=== PATIENT | female | born 1955 | race Caucasian/White ===

== ENCOUNTER → 2019-08-18 | Outpatient (CLI) | payer MEDICARE, OTHER ==
[~2019-08-18] MED LIST: ATOR10 PO; CYAN1000 PO; Calcium-Magnes1 EAC5 PO; DIPH50 PO; ERGO400 PO; FISH1000 PO; Ginger250 MG PO; HYDCHL25 PO; [UNRECOGNIZED DRUG - OTHER] PO
[2019-08-18 17:50] LABS: BASOPHILS ABSOLUTE AUTO 0.07 K/mm3 (0.00-0.23); BASOPHILS PERCENT AUTO 1 % (0-2); EOSINOPHILS PERCENT AUTO 6 % (0-6); Hemoglobin 13.8 g/dL (11.5-16.0); IMMATURE GRAN ABSOLUTE AUTO 0.01 K/mm3 (0.00-0.10); IMMATURE GRAN PERCENT AUTO 0 % (0-1); LYMPHOCYTES ABSOLUTE AUTO 1.43 K/mm3 (0.84-5.20); LYMPHOCYTES PERCENT AUTO 26 % (21-46); MONOCYTES ABSOLUTE AUTO 0.39 K/mm3 (0.16-1.47); MONOCYTES PERCENT AUTO 7 % (4-13); Mean Corpuscular HGB 29.4 pg (26.0-34.0); Mean Corpuscular HGB Conc 32.1 g/dL (31.5-36.5); Mean Corpuscular Volume 92 fL (80-100); Mean Platelet Volume 10.2 fL (9.1-12.4); NEUTROPHILS ABSOLUTE AUTO 3.22 K/mm3 (1.96-9.15); NEUTROPHILS PERCENT AUTO 59 % (41-73); Platelet Count 450 K/mm3 (150-400); RDW Coefficient Variation 15.9 % (11.7-14.2); RDW Standard Deviation 53.7 fL (35.1-46.3); Red Blood Cell Count 4.69 M/mm3 (3.80-5.20); White Blood Cell Count 5.42 K/mm3 (4.00-11.30)
[2019-08-18 18:15] LABS: Alanine Aminotransfer (ALT/SGP 41 U/L (12-78); Albumin, Blood 3.5 g/dL (3.4-5.0); Albumin/Globulin Ratio 0.8 (0.8-1.8); Alk Phos 75 U/L (50-136); Anion Gap 7 mmol/L (6-16); Aspartate Aminotrans (AST/SGOT 29 U/L (12-37); Bilirubin, Total 0.4 mg/dL (0.1-1.0); Blood Urea Nitrogen 20 mg/dL (8-24); Bun/Creatinine Ratio 24.8 (12.0-20.0); CHOL/HDL RATIO 1.9; CO2, Blood 30 mmol/L (21-32); Calcium, Blood 9.1 mg/dL (8.5-10.1); Chloride, Blood 102 mmol/L (98-108); Cholesterol 173 mg/dL (50-200); Creatinine, Blood 0.81 mg/dL (0.40-1.00); Globulin, Blood 4.3 g/dL (2.2-4.0); Glomerular Filtration Rate >60 (60-); Glucose, Blood 97 mg/dL (70-99); HDL Cholesterol 91 mg/dL (>39); LDL/HDL RATIO 0.7; Low Density Lipoprotein Chol 64 mg/dL (0-110); Potassium, Blood 3.3 mmol/L (3.5-5.5); Sodium, Blood 139 mmol/L (136-145); Total Protein, Blood 7.8 g/dL (6.4-8.2); Triglycerides 88 mg/dL (30-160); Very Low Density Lipoprot Chol 17 mg/dL (6-32)
[2019-08-20 05:09] LABS: HBSAG SCREEN Negative (Negative); HEP B CORE AB, TOT Negative (Negative); HEP C VIRUS AB 0.1 (0.0-0.9)
== END ==
LOC: LAB 16:53 → LAB SHORT 16:53
PROVIDERS: Family Medicine
DX: Z11.59 Encounter for screening for other viral diseases (principal); I10 Essential (primary) hypertension; R74.8 Abnormal levels of other serum enzymes
CPT/HCPCS: 80053; 80061; 84443; 85025; 86704; 86708; 86803; 87340

== ENCOUNTER 2021-09-10 20:23 | Emergency (ER) | payer MEDICARE ==
[~2021-09-10] VITALS: Ht 157.5 cm; Wt 99.8 kg
== END 2021-09-10 23:52 | disposition home or self-care (01) ==
LOC: ER 20:23
DX: U07.1 COVID-19 (principal); I10 Essential (primary) hypertension; Z88.8 Allergy status to other drugs, medicaments and biological substances
CPT/HCPCS: 71045; 99283-25

== ENCOUNTER → 2024-08-24 | Outpatient (CLI) | payer OTHER ==
[2024-08-26 22:42] LABS: ALBUMIN 3.95 g/dL (3.75-5.01); ALPHA 1 GLOBULIN 0.32 g/dL (0.19-0.46); ALPHA 2 GLOBULIN 0.92 g/dL (0.48-1.05); BETA GLOBULIN 1.04 g/dL (0.48-1.10); GAMMA 1.17 g/dL (0.62-1.51); IMMUNOFIXATION REFLEX Not Done; TOTAL PROTEIN,SERUM 7.4 g/dL (6.3-8.2)
== END ==
LOC: LAB SHORT 12:12 → LAB 12:12
PROVIDERS: Family Medicine
DX: R77.1 Abnormality of globulin (principal)
CPT/HCPCS: 82784; 83521; 84155; 84165; 86334

== ENCOUNTER → 2025-01-26 | Outpatient (CLI) | payer OTHER | LOC: LAB 09:00 → LAB SHORT 09:00 | DX: N39.46 Mixed incontinence (principal) | CPT/HCPCS: 87077; 87086; 87186 ==

== ENCOUNTER → 2025-02-18 | Outpatient (CLI) | payer OTHER ==
[2025-02-18 15:50] LABS: Bacterial Vaginosis PCR Negative (NEGATIVE); Candida Group, PCR NOT DETECTED (NOT DETECT); Candida glabrata-krusei, PCR NOT DETECTED (NOT DETECT)
== END ==
LOC: LAB 09:46 → LAB SHORT 09:46
PROVIDERS: Physician Assistant
DX: N89.8 Other specified noninflammatory disorders of vagina (principal)
CPT/HCPCS: 81515

== ENCOUNTER 2025-07-20 17:55 | Inpatient (IN) | payer OTHER ==
[~2025-07-20] VITALS: Ht 160 cm; Wt 99.6 kg
[~2025-07-20 17:55] MED LIST changes: +B-12500 MC2 PO; -CYAN1000 PO; +FISH OIL 1,0001 EA10 PO; -FISH1000 PO
[2025-07-20 18:54] LABS: BASOPHILS ABSOLUTE AUTO 0.07 K/mm3 (0.00-0.23); BASOPHILS PERCENT AUTO 1 % (0-2); EOSINOPHILS ABSOLUTE AUTO 0.09 K/mm3 (0.00-0.68); EOSINOPHILS PERCENT AUTO 1 % (0-6); Hematocrit 44.9 % (33.0-51.0); Hemoglobin 15.1 g/dL (11.5-16.0); IMMATURE GRAN ABSOLUTE AUTO 0.03 K/mm3 (0.00-0.10); IMMATURE GRAN PERCENT AUTO 0 % (0-1); LYMPHOCYTES ABSOLUTE AUTO 1.14 K/mm3 (0.84-5.20); LYMPHOCYTES PERCENT AUTO 11 % (21-46); MONOCYTES ABSOLUTE AUTO 0.41 K/mm3 (0.16-1.47); MONOCYTES PERCENT AUTO 4 % (4-13); Mean Corpuscular HGB Conc 33.6 g/dL (31.5-36.5); Mean Corpuscular Volume 92 fL (80-100); NEUTROPHILS ABSOLUTE AUTO 8.32 K/mm3 (1.96-9.15); NEUTROPHILS PERCENT AUTO 83 % (41-73); NRBC ABSOLUTE 0.00 K/mm3 (0.00-0.02); NRBC Auto 0.0 /100 WBC (0.0-0.2); Platelet Count 403 K/mm3 (150-400); RDW Coefficient Variation 13.6 % (11.7-14.2); RDW Standard Deviation 46.3 fL (35.1-46.3)
[2025-07-20 19:12] LABS: Alanine Aminotransfer (ALT/SGP 44.0 U/L (12-78); Albumin, Blood 3.7 g/dL (3.4-5.0); Albumin/Globulin Ratio 0.8 (0.8-1.8); Anion Gap 9.0 mmol/L (3-11); Aspartate Aminotrans (AST/SGOT 30.0 U/L (12-37); Bilirubin, Total 0.5 mg/dL (0.1-1.0); Blood Urea Nitrogen 16.0 mg/dL (8-24); CO2, Blood 30.0 mmol/L (21-32); Calcium, Blood 9.9 mg/dL (8.5-10.1); Chloride, Blood 100.0 mmol/L (98-108); Creatinine, Blood 0.79 mg/dL (0.40-1.00); Globulin, Blood 4.5 g/dL (2.2-4.0); Glucose, Blood 138.0 mg/dL (70-99); Potassium, Blood 3.3 mmol/L (3.5-5.5); Sodium, Blood 136.0 mmol/L (136-145); Total Protein, Blood 8.2 g/dL (6.4-8.2)
[2025-07-20] MEDS ORDERED: HYDCHL25 PO (20:55)
[2025-07-20] MEDS ORDERED: Amitriptyline H10 MG PO (20:55)
[2025-07-20] MEDS ORDERED: Ondansetron HCl 2 MG / ML 2ML Vial IV PRN (22:30)
[2025-07-20] MEDS ORDERED: FLU VACC TS2025-26(6MOS UP)/PF 45 MCG/0.5 ML SYRINGE IM SCH (22:30)
[2025-07-20] MEDS ORDERED: HydrALAZINE HCl 20 MG / ML 1ML Vial IV PRN (22:35)
[2025-07-20] MEDS ORDERED: Naloxone HCl 0.4MG / ML 1ML Vial IV PRN (22:50)
[2025-07-20] MEDS ORDERED: NS KCL 40 mEq 1,000 ML IV ONE (23:00)
[2025-07-20] MEDS ORDERED: Morphine Sulfate 4 MG/1 ML Injection IV PRN (23:00)
[2025-07-20] MEDS ORDERED: Morphine Sulfate 4 MG/1 ML Injection IV ONE (23:00)
[2025-07-20 23:34] VITALS: BP 155/97
[2025-07-21 02:54] VITALS: BP 183/113
[2025-07-21 04:32] LABS: BASOPHILS ABSOLUTE AUTO 0.05 K/mm3 (0.00-0.23); BASOPHILS PERCENT AUTO 0 % (0-2); EOSINOPHILS ABSOLUTE AUTO 0.04 K/mm3 (0.00-0.68); EOSINOPHILS PERCENT AUTO 0 % (0-6); Hematocrit 42.3 % (33.0-51.0); Hemoglobin 14.2 g/dL (11.5-16.0); IMMATURE GRAN ABSOLUTE AUTO 0.03 K/mm3 (0.00-0.10); IMMATURE GRAN PERCENT AUTO 0 % (0-1); LYMPHOCYTES ABSOLUTE AUTO 2.04 K/mm3 (0.84-5.20); LYMPHOCYTES PERCENT AUTO 18 % (21-46); MONOCYTES ABSOLUTE AUTO 0.62 K/mm3 (0.16-1.47); MONOCYTES PERCENT AUTO 5 % (4-13); Mean Corpuscular HGB Conc 33.6 g/dL (31.5-36.5); Mean Corpuscular Volume 92 fL (80-100); NEUTROPHILS ABSOLUTE AUTO 8.63 K/mm3 (1.96-9.15); NEUTROPHILS PERCENT AUTO 76 % (41-73); NRBC ABSOLUTE 0.00 K/mm3 (0.00-0.02); NRBC Auto 0.0 /100 WBC (0.0-0.2); Platelet Count 409 K/mm3 (150-400); RDW Coefficient Variation 13.6 % (11.7-14.2); RDW Standard Deviation 46.4 fL (35.1-46.3)
[2025-07-21 04:40] LABS: Prothrombin Time Results 11.4 Sec (9.7-11.5)
--- NOTE | 2025-07-21 04:58 | NUR ---
NOC SUMMARY- PT ARRIVED TO ROOM IN NO DISTRESS. PT AMBULATORY AND VOIDING. PT HAS BEEN RESTING COMFORTABLY. PT REMAINS NPO. CALL LIGHT IN REACH.
[2025-07-21 05:05] LABS: Alanine Aminotransfer (ALT/SGP 37.0 U/L (12-78); Albumin, Blood 3.4 g/dL (3.4-5.0); Albumin/Globulin Ratio 0.8 (0.8-1.8); Anion Gap 9.0 mmol/L (3-11); Aspartate Aminotrans (AST/SGOT 28.0 U/L (12-37); Bilirubin, Total 0.5 mg/dL (0.1-1.0); Blood Urea Nitrogen 14.0 mg/dL (8-24); CO2, Blood 27.0 mmol/L (21-32); Calcium, Blood 9.3 mg/dL (8.5-10.1); Chloride, Blood 104.0 mmol/L (98-108); Creatinine, Blood 0.6 mg/dL (0.40-1.00); Globulin, Blood 4.0 g/dL (2.2-4.0); Glucose, Blood 131.0 mg/dL (70-99); Magnesium, Blood 2.5 mg/dL (1.6-2.4); Potassium, Blood 3.5 mmol/L (3.5-5.5); Sodium, Blood 136.0 mmol/L (136-145); Total Protein, Blood 7.4 g/dL (6.4-8.2)
[2025-07-21 07:19] VITALS: BP 149/83
[2025-07-21] MEDS ORDERED: Enoxaparin 40 MG/0.4 ML SYR SC SCH (09:00)
[2025-07-21 14:51] VITALS: BP 140/90
--- NOTE | 2025-07-21 16:57 | NUR ---
SUMMARY NO ACUTE CHANGES T/O SHIFT. PT REC'D FLEET ENEMA PER ORDERS AND HAD SMALL HARD BM. AMBULATED IN [place] W/OIL SCOUT. MEDICATED ONCE DURING SHIFT FOR PAIN. REMAINS NPO. IV FLUIDS INFUSING PER ORDERS. SLEEPING AT THIS TIME. CALL LIGHT IN REACH.
[2025-07-21 19:41] VITALS: BP 153/94
[2025-07-22] VITALS (9 sets, daily range): BP systolic 146–181; BP diastolic 83–99
[2025-07-22 04:39] LABS: BASOPHILS ABSOLUTE AUTO 0.05 K/mm3 (0.00-0.23); BASOPHILS PERCENT AUTO 1 % (0-2); EOSINOPHILS ABSOLUTE AUTO 0.31 K/mm3 (0.00-0.68); EOSINOPHILS PERCENT AUTO 4 % (0-6); Hematocrit 39.7 % (33.0-51.0); Hemoglobin 13.1 g/dL (11.5-16.0); IMMATURE GRAN ABSOLUTE AUTO 0.02 K/mm3 (0.00-0.10); IMMATURE GRAN PERCENT AUTO 0 % (0-1); LYMPHOCYTES ABSOLUTE AUTO 1.48 K/mm3 (0.84-5.20); LYMPHOCYTES PERCENT AUTO 19 % (21-46); MONOCYTES ABSOLUTE AUTO 0.68 K/mm3 (0.16-1.47); MONOCYTES PERCENT AUTO 9 % (4-13); Mean Corpuscular HGB Conc 33.0 g/dL (31.5-36.5); Mean Corpuscular Volume 95 fL (80-100); NEUTROPHILS ABSOLUTE AUTO 5.24 K/mm3 (1.96-9.15); NEUTROPHILS PERCENT AUTO 67 % (41-73); NRBC ABSOLUTE 0.00 K/mm3 (0.00-0.02); NRBC Auto 0.0 /100 WBC (0.0-0.2); Platelet Count 319 K/mm3 (150-400); RDW Coefficient Variation 14.0 % (11.7-14.2); RDW Standard Deviation 49.1 fL (35.1-46.3)
--- NOTE | 2025-07-22 05:13 | NUR ---
SHIFT SUMMARY HUA WAS ALERT AND FULLY ORIENTED ON ASSESSMENT. PER REPORT PT HAD BM'S AND PASSED FLATUS ON DAY SHIFT. BT'S PRESENT. PT DENES PAIN, CHEST PAIN, NAUSEA, SOB. PT B/P ELEVATED. NO ACUTE EVENTS OR OTHER NOTED CHANGES TO PT CONDITION.
[2025-07-22 05:25] LABS: Anion Gap 6.0 mmol/L (3-11); Blood Urea Nitrogen 16.0 mg/dL (8-24); CO2, Blood 30.0 mmol/L (21-32); Calcium, Blood 9.0 mg/dL (8.5-10.1); Chloride, Blood 105.0 mmol/L (98-108); Creatinine, Blood 0.67 mg/dL (0.40-1.00); Glucose, Blood 99.0 mg/dL (70-99); Potassium, Blood 3.4 mmol/L (3.5-5.5); Sodium, Blood 138.0 mmol/L (136-145)
--- NOTE | 2025-07-22 08:46 | NUR ---
DISCHARGE PT EDUCATED ON AND RECEIVED PRINTED DISCHARGE INSTRUCTIONS AND VERBALIZED AN UNDERSTANDING. PT REPORTS HAVING ALL NEW RXS FILLED AT HOME. IV DC'D. PT GATHERING ALL PERSONAL BELONGINGS. HERE TO TAKE PT HOME. WILL ESCORT PT OUT VIA W/C TO VEHICLE.
[2025-07-22] MEDS ORDERED: Potassium Chl 20MEQ/Water100ML 100 ML IV STA (10:39)
--- NOTE | 2025-07-22 16:49 | NUR ---
PATIENT HAS BEEN UP TO CHAIR X3 TODAY.WALKED HALLS X2 WITH NO ASSIT.
--- NOTE | 2025-07-22 17:29 | NUR ---
SHIFT NOTE: PT A/OX4 PLEASANT AND COOPERATIVE WITH CARE. SHE HAS BOWEL TONES IN ALL QUADRANTS. SHE DENIES PASSING FLATUS AND NO BM THIS SHIFT. HER ABD IS FIRM AND DISTENDED. SHE REPORTS FEELING FULL AND FEELING THE NEED TO BURP. SHE IS ON A CLEAR LIQUID DIET WITH MINIMAL INTAKE TOLERATED. SHE HAS REMAINED ON RA T/O DAY SHIFT. SHE HAS BEEN AMBULATING THE HALLS INDEPENDENTLY TO PROMOTE GUT MOTILITY. CARE CONTINUES
--- NOTE | 2025-07-22 19:44 | NUR ---
PROVIDER UPDATE DR. OSEGUERA NOTIFIED PT C/O 07/15 ABD "GAS" PAIN, SEVERE BLOATING AND ABD TENDERNESS. NEW ORDER FOR NG PLACEMENT, NPO STATUS AND XRAY POST PLACEMENT OBTAINED. WILL DISCUSS TREATMENT PLACE WITH PATIENT AND IMPLEMENT DIRECTED.
[2025-07-23] VITALS (14 sets, daily range): BP systolic 129–169; BP diastolic 79–98
--- NOTE | 2025-07-23 04:17 | NUR ---
SHIFT SUMMARY HUA WAS ALERT AND FULLY ORIENTED ON ASSESSMENT. PT DENIES SOB, CHEST PAIN, NAUSEA. PT DENIES PAIN, BUT IS VERY UNCOMFORTABLE DT ABD BLOATING. PT IS DISTENDED, ABD VERY FIRM, DENIES PASSING FLATUS, UNABLE TO BELCH. DR OSEGUERA CONTACTED, NJT ORDERED. ATTEMPTED TO PLACE, BUT TUBE CURLED AT BOTTOM OF ESOPHAGUS AND DID NOT ENTER STOMACH, PT UNWILLING TO ATTEMPT A SECOND PLACEMENT D/T DISCOMFORT. PT STATES DISCOMFORT IS UNCHANGED ATTHIS TIME. WALKING ENCOURAGED. PT NPO. NO OTHER EVENTS OR CHANGES THIS SHIFT.
[2025-07-23 04:42] LABS: BASOPHILS ABSOLUTE AUTO 0.06 K/mm3 (0.00-0.23); BASOPHILS PERCENT AUTO 1 % (0-2); EOSINOPHILS ABSOLUTE AUTO 0.23 K/mm3 (0.00-0.68); EOSINOPHILS PERCENT AUTO 3 % (0-6); Hematocrit 39.4 % (33.0-51.0); Hemoglobin 13.0 g/dL (11.5-16.0); IMMATURE GRAN ABSOLUTE AUTO 0.02 K/mm3 (0.00-0.10); IMMATURE GRAN PERCENT AUTO 0 % (0-1); LYMPHOCYTES ABSOLUTE AUTO 1.83 K/mm3 (0.84-5.20); LYMPHOCYTES PERCENT AUTO 21 % (21-46); MONOCYTES ABSOLUTE AUTO 0.68 K/mm3 (0.16-1.47); MONOCYTES PERCENT AUTO 8 % (4-13); Mean Corpuscular HGB Conc 33.0 g/dL (31.5-36.5); Mean Corpuscular Volume 93 fL (80-100); NEUTROPHILS ABSOLUTE AUTO 5.85 K/mm3 (1.96-9.15); NEUTROPHILS PERCENT AUTO 68 % (41-73); NRBC ABSOLUTE 0.00 K/mm3 (0.00-0.02); NRBC Auto 0.0 /100 WBC (0.0-0.2); Platelet Count 325 K/mm3 (150-400); RDW Coefficient Variation 13.8 % (11.7-14.2); RDW Standard Deviation 46.7 fL (35.1-46.3)
[2025-07-23 05:11] LABS: Anion Gap 8.0 mmol/L (3-11); Blood Urea Nitrogen 9.0 mg/dL (8-24); CO2, Blood 28.0 mmol/L (21-32); Calcium, Blood 9.3 mg/dL (8.5-10.1); Chloride, Blood 102.0 mmol/L (98-108); Creatinine, Blood 0.61 mg/dL (0.40-1.00); Glucose, Blood 101.0 mg/dL (70-99); Potassium, Blood 3.3 mmol/L (3.5-5.5); Sodium, Blood 135.0 mmol/L (136-145)
--- NOTE | 2025-07-23 10:54 | NUR ---
MD OSEGUERA AT BEDSIDE TO OR TODAY FOR BOWEL RESECTION w/POSSIBLE OSTOMY PLACMENT. NPO SINCE MIDNIGHT. PT DID RECIEVE LOVENOX THIS AM. MD OSEGUERA NOTIFIED, PT TO STILL RECEIVE SURGERY TODAY.
[2025-07-23] MEDS ORDERED: Rocuronium Bromide 10 MG/ML 5ML Injection IV ONE (11:17)
--- NOTE | 2025-07-23 11:57 | NUR ---
PATIENT OFF UNIT FOR PROCEDURE
[2025-07-23] MEDS ORDERED: Ampicillin Sod/Sulbactam Sod 3 GM in NS 100 ML IV SCH (12:00)
[2025-07-23] MEDS ORDERED: FentaNYL Citrate 50 MCG/ML 2 ML Injection ONE (12:10)
[2025-07-23] MEDS ORDERED: Ondansetron HCl 2 MG / ML 2ML Vial ONE (12:15)
[2025-07-23] MEDS ORDERED: Dexamethasone Sod Phos 10 MG/ML 1ML VIAL ONE (12:15)
[2025-07-23] MEDS ORDERED: Sugammadex Sodium 200 MG/2ML SDV (100 MG/ML) ONE (12:24)
[2025-07-23] MEDS ORDERED: Bupivacaine 0.5% HCl 5 MG/ML 30MLVIAL ONE (12:24)
[2025-07-23] MEDS ORDERED: HYDROmorphone HCl/Pf 1MG SYR ONE ×2 (12:29→13:32)
[2025-07-23] MEDS ORDERED: HydrALAZINE HCl 20 MG / ML 1ML Vial IV PRN (13:20)
[2025-07-23] MEDS ORDERED: FentaNYL Citrate 50 MCG/ML 2 ML Injection IV PRN ×2 (13:25)
[2025-07-23] MEDS ORDERED: Dexamethasone Sodium Phosphate 4 MG/ML 5ML VIAL IV PRN (13:25)
[2025-07-23] MEDS ORDERED: HYDROmorphone HCl/Pf 1MG SYR IV PRN ×2 (13:25)
[2025-07-23] MEDS ORDERED: Prochlorperazine Edisylate 10 mg Vial IV PRN (13:25)
[2025-07-23] MEDS ORDERED: Ondansetron HCl 2 MG / ML 2ML Vial IV PRN (13:25)
--- NOTE | 2025-07-23 14:08 | NUR ---
ARRIVAL TO SURG FLOOR TO FLOOR VIA HOSP BED. A&O x4, VSS, HRR, LUNGS CLEAR. PT SLEEPY, EASILY AROUSABLE BEFORE FALLING BACK ASLEEP. DOES ENDORSE PAIN WHEN AWAKE. S/P COLECTOMY & COLOSTOMY PLACEMENT. SMALL AMOUNT OF RED LIQUID IN APPLIANCE. STOMA PINK & MOIST, PASSING FLATUS. MIDLINE MARIZA DRESSING TO SUCTION w/SMALL AMOUNT OF RED DRAINAGE. ON 3L O2 NC w/SATS >93%.
--- NOTE | 2025-07-23 17:56 | NUR ---
SHIFT SUMMARY S/P COLECTOMY & COLOSTOMY PLACEMENT. A&O x4, VSS, HRR, LUNGS CLEAR. STATES NO PAIN AT THIS TIME. MIDLINE MARIZA DRESSING, SMALL AMOUNT OF RED DRAINAGE. LLQ COLOSTOMY w/LIQUID DARK RED OUTPUT & GAS. CURRENTLY ON 1L O2 NC w/SATS >93%. SANTO CATH IN PLACE DRAINING CLEAR YELLOW URINE TO GRAVITY. TOLERATING CLEAR LIQUID DIET WELL, NO N/V. CURRENTLY RESTING IN BED w/CALL LIGHT WITHIN REACH.
[2025-07-24 00:24] VITALS: BP 137/84
[2025-07-24 04:25] LABS: BASOPHILS ABSOLUTE AUTO 0.01 K/mm3 (0.00-0.23); BASOPHILS PERCENT AUTO 0 % (0-2); EOSINOPHILS ABSOLUTE AUTO 0.01 K/mm3 (0.00-0.68); EOSINOPHILS PERCENT AUTO 0 % (0-6); Hematocrit 34.6 % (33.0-51.0); Hemoglobin 11.6 g/dL (11.5-16.0); IMMATURE GRAN ABSOLUTE AUTO 0.03 K/mm3 (0.00-0.10); IMMATURE GRAN PERCENT AUTO 0 % (0-1); LYMPHOCYTES ABSOLUTE AUTO 1.05 K/mm3 (0.84-5.20); LYMPHOCYTES PERCENT AUTO 10 % (21-46); MONOCYTES ABSOLUTE AUTO 0.84 K/mm3 (0.16-1.47); MONOCYTES PERCENT AUTO 8 % (4-13); Mean Corpuscular HGB Conc 33.5 g/dL (31.5-36.5); Mean Corpuscular Volume 92 fL (80-100); NEUTROPHILS ABSOLUTE AUTO 8.68 K/mm3 (1.96-9.15); NEUTROPHILS PERCENT AUTO 82 % (41-73); NRBC ABSOLUTE 0.00 K/mm3 (0.00-0.02); NRBC Auto 0.0 /100 WBC (0.0-0.2); Platelet Count 333 K/mm3 (150-400); RDW Coefficient Variation 13.8 % (11.7-14.2); RDW Standard Deviation 47.0 fL (35.1-46.3)
[2025-07-24 04:44] LABS: Anion Gap 8.0 mmol/L (3-11); Blood Urea Nitrogen 14.0 mg/dL (8-24); CO2, Blood 27.0 mmol/L (21-32); Calcium, Blood 8.8 mg/dL (8.5-10.1); Chloride, Blood 103.0 mmol/L (98-108); Creatinine, Blood 0.78 mg/dL (0.40-1.00); Glucose, Blood 140.0 mg/dL (70-99); Potassium, Blood 4.4 mmol/L (3.5-5.5); Sodium, Blood 134.0 mmol/L (136-145)
--- NOTE | 2025-07-24 04:44 | NUR ---
SHIFT SUMMARY AOX4. POD 1-COLECTOMY W/COLOSTOMY. MIDLINE INCISION W/MARIZA DRESSING. CHANGED MARIZA DRESSING, 25 MADELIN NOTED-CLEANSED LIGHTLY W/STERILE NS. MARIZA HAD SM-MOD SATURATED @BOTTOM OF MIDLINE & HAVING ISSUES MAINTAINING SX & COMPRESSED, DRESSING NOW POST CHANGE IS INTACT W/O SHADOWING. REPORTS 5/10 PAIN, MEDICATED W/TYLENOL & 4MG IV MORPHINE & PT STATES PAIN RELIEF. DENIES N/V TOLERATING WATER & JELLO. PASSING FLATUS OUT OSTOMY. AMBULATED HALLS 1x W/FWW & 1P & TOLERATED. SANTO DRAINING CLEAR YELLOW URINE. VSS, SPO2 DOES DROP TO 87-88% AFTER RECIEVING MORPHINE ON 1L & FALLING ASLEEP. THEREFORE INCREASED O2 TO 2L, WHEN PT AWAKE PT SPO2 >92% ON RA. CALL LIGHT IN REACH & PT ABLE TO MAKE NEEDS KNOWN.
[2025-07-24 05:39] VITALS: BP 134/79
[2025-07-24 07:51] VITALS: BP 136/83
[2025-07-24 11:14] VITALS: BP 157/86
--- NOTE | 2025-07-24 11:33 | NUR ---
MD OSEGUERA & PHONG TO BEDSIDE TO BEDSIDE AT APPROXIMATELY 1100. RECIEVED ORDERED TO DC SANTO & MARIZA DRESSING. MARIZA DRESSING REPLACED w/MEDIPORE BY THIS RN. INCISION w/MADELIN, C/D/I. MD DARLING TO PUT IN ORAL PAIN MED ORDERS.
--- NOTE | 2025-07-24 14:56 | NUR ---
SHIFT SUMMARY POD 1 COLECTOMY & COLOSTOMY PLACEMENT. A&O x4, VSS. TOLERATING CLEAR LIQUID DIET WELL, NO N/V. SANTO REMOVED, VOIDING SICNE. CHANGED MARIZA DRESSING TO MEDIPORE TODAY, C/D/I. LLQ COLOSTOMY w/SMALL AMOUNT DARK RED DRAINAGE & GAS. AMBULATES IND IN ROOM & HALLWAY. MINIMAL PAIN TODAY, CONTROLLED WELL PER EMAR. CURRENTLY RESTING IN BED w/CALL LIGHT WITHIN REACH.
[2025-07-24 14:57] VITALS: BP 142/80
[2025-07-24 19:42] VITALS: BP 139/84
[2025-07-25 04:36] VITALS: BP 137/81
--- NOTE | 2025-07-25 05:18 | NUR ---
DRY KILN FEEDER SUMMARY PT IS POD 1 FOR COLECTOMY WITH OSTOMY PLACEMENT. PT CONTINUES TO HAVE VERY MINIMAL SS OUTPUT INTO OSTOMY BAG. DOES PUT OUT SOME GAS HOWEVER. PT TOLERATING CLEAR LIQUID DIET WITH NO ISSUES THUS FAR. PT REPORTS SOME MILD TENDERNESS TO HER ABD BUT HAS DECLINED NEEDING ANY PAIN MEDICATIONS THUS FAR. VSS, WCTM.
[2025-07-25 05:36] VITALS: BP 147/83
[2025-07-25 05:54] LABS: BASOPHILS ABSOLUTE AUTO 0.03 K/mm3 (0.00-0.23); BASOPHILS PERCENT AUTO 0 % (0-2); EOSINOPHILS ABSOLUTE AUTO 0.37 K/mm3 (0.00-0.68); EOSINOPHILS PERCENT AUTO 4 % (0-6); Hematocrit 31.3 % (33.0-51.0); Hemoglobin 10.4 g/dL (11.5-16.0); IMMATURE GRAN ABSOLUTE AUTO 0.03 K/mm3 (0.00-0.10); IMMATURE GRAN PERCENT AUTO 0 % (0-1); LYMPHOCYTES ABSOLUTE AUTO 1.65 K/mm3 (0.84-5.20); LYMPHOCYTES PERCENT AUTO 19 % (21-46); MONOCYTES ABSOLUTE AUTO 0.76 K/mm3 (0.16-1.47); MONOCYTES PERCENT AUTO 9 % (4-13); Mean Corpuscular HGB Conc 33.2 g/dL (31.5-36.5); Mean Corpuscular Volume 93 fL (80-100); NEUTROPHILS ABSOLUTE AUTO 6.10 K/mm3 (1.96-9.15); NEUTROPHILS PERCENT AUTO 68 % (41-73); NRBC ABSOLUTE 0.00 K/mm3 (0.00-0.02); NRBC Auto 0.0 /100 WBC (0.0-0.2); Platelet Count 302 K/mm3 (150-400); RDW Coefficient Variation 13.9 % (11.7-14.2); RDW Standard Deviation 47.5 fL (35.1-46.3)
[2025-07-25 06:16] LABS: Anion Gap 8.0 mmol/L (3-11); Blood Urea Nitrogen 10.0 mg/dL (8-24); CO2, Blood 31.0 mmol/L (21-32); Calcium, Blood 8.9 mg/dL (8.5-10.1); Chloride, Blood 99.0 mmol/L (98-108); Creatinine, Blood 0.71 mg/dL (0.40-1.00); Glucose, Blood 98.0 mg/dL (70-99); Potassium, Blood 3.5 mmol/L (3.5-5.5); Sodium, Blood 134.0 mmol/L (136-145)
[2025-07-25 07:29] VITALS: BP 148/84
[2025-07-25 13:59] VITALS: BP 142/83
[2025-07-25 19:21] VITALS: BP 150/88
[2025-07-26 03:51] VITALS: BP 151/87
--- NOTE | 2025-07-26 05:03 | NUR ---
STITCHING MACHINE FEEDER OR OFFBEARER SUMMARY PT IS POD 2 FOR COLECTOMY WITH OSTOMY PLACEMENT. PT CONTINUES TO HAVE MINIMAL OUTPUT INTO OSTOMY, MAINLY SS DRAINAGE WITH SOME FLATUS. PT DID BECOME NAUSEAS AND VOMIT A VERY SMALL AMOUNT THIS MORNING AFTER COMPLAINING OF SOME ACID REFLUX. NAUSEA RESOLVED QUICKLY AFTER ZOFRAN GIVEN. PT UP INDEPENDENTLY TO USE THE BATHROOM AND ALSO WALKED THE HALLS BEFORE BED. VSS, LOCO.
[2025-07-26 06:05] LABS: BASOPHILS ABSOLUTE AUTO 0.04 K/mm3 (0.00-0.23); BASOPHILS PERCENT AUTO 0 % (0-2); EOSINOPHILS ABSOLUTE AUTO 0.19 K/mm3 (0.00-0.68); EOSINOPHILS PERCENT AUTO 2 % (0-6); Hematocrit 34.9 % (33.0-51.0); Hemoglobin 11.6 g/dL (11.5-16.0); IMMATURE GRAN ABSOLUTE AUTO 0.04 K/mm3 (0.00-0.10); IMMATURE GRAN PERCENT AUTO 0 % (0-1); LYMPHOCYTES ABSOLUTE AUTO 1.13 K/mm3 (0.84-5.20); LYMPHOCYTES PERCENT AUTO 11 % (21-46); MONOCYTES ABSOLUTE AUTO 0.70 K/mm3 (0.16-1.47); MONOCYTES PERCENT AUTO 7 % (4-13); Mean Corpuscular HGB Conc 33.2 g/dL (31.5-36.5); Mean Corpuscular Volume 91 fL (80-100); NEUTROPHILS ABSOLUTE AUTO 8.68 K/mm3 (1.96-9.15); NEUTROPHILS PERCENT AUTO 80 % (41-73); NRBC ABSOLUTE 0.00 K/mm3 (0.00-0.02); NRBC Auto 0.0 /100 WBC (0.0-0.2); Platelet Count 370 K/mm3 (150-400); RDW Coefficient Variation 13.5 % (11.7-14.2); RDW Standard Deviation 45.5 fL (35.1-46.3)
[2025-07-26 06:21] LABS: Anion Gap 9.0 mmol/L (3-11); Blood Urea Nitrogen 10.0 mg/dL (8-24); CO2, Blood 31.0 mmol/L (21-32); Calcium, Blood 9.4 mg/dL (8.5-10.1); Chloride, Blood 95.0 mmol/L (98-108); Creatinine, Blood 0.64 mg/dL (0.40-1.00); Glucose, Blood 115.0 mg/dL (70-99); Potassium, Blood 3.4 mmol/L (3.5-5.5); Sodium, Blood 132.0 mmol/L (136-145)
[2025-07-26 07:27] VITALS: BP 149/90
[2025-07-26] MEDS ORDERED: Prochlorperazine Edisylate 10 mg Vial IV PRN (10:30)
[2025-07-26] MEDS ORDERED: Pantoprazole Sodium 40 MG Injection IV SCH (11:00)
[2025-07-26 12:00] VITALS: BP 141/88
[2025-07-26 15:38] VITALS: BP 149/90
--- NOTE | 2025-07-26 18:00 | NUR ---
SHIFT SUMMARY PT IS A/OX4. VSS. PT IS TOLERATING SMALL AMOUNTS OF FULL LIQUIDS. N/V MANAGED PER EMAR. PT REPORTS SIGNIFICANT IMPROVEMENT W/ PROTONIX. PT IS IND, AMBULATING HALLS. PT IS BURPING HER OWN OSTOMY, MINIMAL OUTPUT. ASSESSMENT CHARTED. PLAN IS TO CONTINUE ADVANCING DIET TOLERATED. PT HAS CONCERNS ABOUT HER TREATMENT PLAN GOING FORWARD. ENCOURAGED TO DISCUSS CONCERNS W/ PROVIDER.
--- NOTE | 2025-07-26 18:34 | NUR ---
Pt. is awake in bed and welcomes my visit. Pt. is pleasant. Facilitated a life review and listend with interest and empathy. Pt. displays evidence of trust and encouragement. Considered matters of zak and belief. Visit was abbreviated by a Trauma Team Activation. Raymond with the Pt. Pt. verbalizes gratitude for the spiritual care visit.
[2025-07-26 19:13] VITALS: BP 169/100
[2025-07-26] MEDS ORDERED: HydrALAZINE HCl 20 MG / ML 1ML Vial IV PRN (19:30)
[2025-07-27 04:05] VITALS: BP 133/81
--- NOTE | 2025-07-27 04:05 | NUR ---
SHIFT SUMMARY ADMITTED FOR LARGE BOWEL OBSTRUCTION. P/O DAY 4 FROM COLECTOMY/OSTOMY. SEROSANGUINOUS DRAINAGE AND GAS NOTED. ON RA, INDEPENDENT W/FWW. SURGICAL CONSULT IS DR. DUONG/DR. OSEGUERA. FULL LIQUID DIET. PLAN IS TO ADVANCE DIET TOLERATED AND MONITOR FOR OSTOMY OUTPUT. PAIN MEDICATION GIVEN THIS SHIFT.
[2025-07-27 07:26] VITALS: BP 129/79
[2025-07-27 14:44] VITALS: BP 152/89
--- NOTE | 2025-07-27 17:19 | NUR ---
SHIFT SUMMARY PT IS A/OX4. PT STARTED SHIFT STATING "TODAY IS GONNA BE A GOOD DAY". TOLERATING PO INTAKE, DENIES N/V. PT AMBULATING IND. PAIN MANAGED PER EMAR. PT NOW CONCERNED REGARDING PAIN ASKING IF THE "DOCTOR GOT ALL THE CANCER OUT". ENCOURAGED PT TO MENTION CONCERNS TO DOCTOR DURING ROUNDS. THERAPEUTIC COMMUNICATION UTILIZED. NO STOOL IN OSTOMY, PT CONTINUINING TO PASS FLATUS.
[2025-07-27 19:15] VITALS: BP 120/106
[2025-07-28 03:59] LABS: BASOPHILS ABSOLUTE AUTO 0.05 K/mm3 (0.00-0.23); BASOPHILS PERCENT AUTO 1 % (0-2); EOSINOPHILS ABSOLUTE AUTO 0.48 K/mm3 (0.00-0.68); EOSINOPHILS PERCENT AUTO 6 % (0-6); Hematocrit 31.8 % (33.0-51.0); Hemoglobin 10.9 g/dL (11.5-16.0); IMMATURE GRAN ABSOLUTE AUTO 0.02 K/mm3 (0.00-0.10); IMMATURE GRAN PERCENT AUTO 0 % (0-1); LYMPHOCYTES ABSOLUTE AUTO 1.21 K/mm3 (0.84-5.20); LYMPHOCYTES PERCENT AUTO 14 % (21-46); MONOCYTES ABSOLUTE AUTO 0.62 K/mm3 (0.16-1.47); MONOCYTES PERCENT AUTO 7 % (4-13); Mean Corpuscular HGB Conc 34.3 g/dL (31.5-36.5); Mean Corpuscular Volume 92 fL (80-100); NEUTROPHILS ABSOLUTE AUTO 6.39 K/mm3 (1.96-9.15); NEUTROPHILS PERCENT AUTO 73 % (41-73); NRBC ABSOLUTE 0.00 K/mm3 (0.00-0.02); NRBC Auto 0.0 /100 WBC (0.0-0.2); Platelet Count 431 K/mm3 (150-400); RDW Coefficient Variation 13.2 % (11.7-14.2); RDW Standard Deviation 44.5 fL (35.1-46.3)
--- NOTE | 2025-07-28 04:15 | NUR ---
SHIFT SUMMARY HUA WAS ALERT AND FULLY ORIENTED ON ASSESSMENT. PT HAS PERSISITING EPIGASTRIC PAIN THAT IS WELL CONTROLLED ON CURRENT MEDS. PT AMBULATING/ VOIDING INDEPENDENTLY. OSTOMY OUTPUTTING SCANT BROWNISH RED LIQUID AT THIS TIME, MINIMAL GAS. BT NORMAL. PT STILL FEELS BLOATED. NO ACUTE EVENTS, NO NOTED CHANGES TO PT CONDITION. PT DENIES NAUSEA, SOB, CHEST PAIN.
[2025-07-28 04:37] LABS: Alanine Aminotransfer (ALT/SGP 35.0 U/L (12-78); Albumin, Blood 2.7 g/dL (3.4-5.0); Albumin/Globulin Ratio 0.7 (0.8-1.8); Anion Gap 7.0 mmol/L (3-11); Aspartate Aminotrans (AST/SGOT 31.0 U/L (12-37); Bilirubin, Total 0.8 mg/dL (0.1-1.0); Blood Urea Nitrogen 13.0 mg/dL (8-24); CO2, Blood 34.0 mmol/L (21-32); Calcium, Blood 9.2 mg/dL (8.5-10.1); Chloride, Blood 92.0 mmol/L (98-108); Creatinine, Blood 0.63 mg/dL (0.40-1.00); Globulin, Blood 3.9 g/dL (2.2-4.0); Glucose, Blood 101.0 mg/dL (70-99); Potassium, Blood 3.3 mmol/L (3.5-5.5); Sodium, Blood 130.0 mmol/L (136-145); Total Protein, Blood 6.6 g/dL (6.4-8.2)
[2025-07-28 05:14] VITALS: BP 144/79
[2025-07-28 07:18] VITALS: BP 143/89
[2025-07-28] MEDS ORDERED: Magnesium Hydroxide Conc 10 ML UDC PO PRN (11:30)
[2025-07-28] MEDS ORDERED: Polyethylene Glycol 3350 17 gm PO PRN (11:30)
[2025-07-28 14:50] VITALS: BP 161/96
[2025-07-28 14:51] VITALS: BP 166/88
--- NOTE | 2025-07-28 19:26 | NUR ---
SHIFT SUMMARY STOME NOT PRODUCING LQ OR STOOL; SCANT GAS TODAY. ABD CONTINUES TO GET MORE DISTENDED & PAIN MANAGEMENT HAS CHANGED FROM PO MANAGEMENT TO IV MORPHINE. BOTH SURGEON & EFM AWARE. AMBULATED IN HALLWAYS & UP TO BATHROOM SEVERAL TIMES. ABLE TO SIP OF WATER & MIRALAX GIVEN BUT ONLY SMALL BITES OF FULL LQ BREAKFAST THEN HAS DECLINED TRAYS & JUST SIPPED ON WATER. (URINE CLEAR).
[2025-07-28 19:30] VITALS: BP 147/88
[2025-07-29] VITALS (11 sets, daily range): BP systolic 151–175; BP diastolic 87–108
--- NOTE | 2025-07-29 04:47 | NUR ---
SHIFT SUMMARY PT PUT OUT A VERY SMALL OUT OF STOOL FROM OSTOMY THIS SHIFT. SOME GAS IN OSTOMY. PT CONTINUES BOWEL CARE PER ORDERS. ABD IS DISTENDED, PT REPORTS FEELING BLOATED. TOLEARATING FULL LIQUID DIET, DENIES N/V. PT UP AMBULATING INDEPENDENTLY IN ROOM. PLAN OF CARE REMAINS UNCHANGED. BED IN LOWEST POSITION, CALL LIGHT WITHIN REACH.
--- NOTE | 2025-07-29 13:59 | NUR ---
Pt. is awake in bed and welcomes my visit. Pt. verbalizes that she had recenty experienced nausea, but that she feels that she is improving. Considered matters of zak and belief. Pt. displays evidence of being encourgaed. Prayed with pt. Pt. verbalized gratitude for the spiritual care visit and requested this legal clerk close the door.
--- NOTE | 2025-07-29 16:29 | NUR ---
SUMMARY: PT IS POD6 FOR COLECTOMY WITH OSTOMY. PT IS A/O, INDEP IN ROOM. MOVES WELL AMBULATING IN HALLS AND TOOK SHOWER TODAY. ABD IS MODERATELY DISTENTED, BINDER IN PLACE. SURGICAL SITE WNL. OSTOMY HAS LIQ BM AND 2 FORMED GINNY, PRODUCING PLENTLY OF GAS. PT DRANK LACTULOSE AND THEN THREW IT BACK UP, 200ML OF EMESIS. REPORTS SOME NAUSEA TONIGHT, MEDICATED PER EMAR. HAS ONLY DRANK WATER TODAY. PAIN SEEMS MANAGED WITH TRAMADOL AND TYLENOL. PT GIVEN IV HYDRALAZINE TONIGHT FOR SBP 170. PT USES CALL LIGHT AND MAKES NEEDS KNOWN
--- NOTE | 2025-07-29 18:21 | NUR ---
PT REPORTS INCREASED NAUSEA AND PAIN TONIGHT, MEDICATED PER EMAR. ABD IS SLIGHTLY MORE DISTENDED COMPARED TO THIS MORNING , STILL PRODUCING GAS, BURPED BAG X2 TODAY. DR. OSEGUERA MADE AWARE. SEE NEW ORDER
[2025-07-29] MEDS ORDERED: NS 1,000 ML IV SCH (18:25)
--- NOTE | 2025-07-29 18:41 | NUR ---
PT HAS HTN AFTER HYDRALAZINE GIVEN, AND MEDICATION FOR PAIN AND NAUSEA. DR. HOOKER NOTIFIED. SEE VS PT DENIES DIZZINESS
[2025-07-30] VITALS (7 sets, daily range): BP systolic 125–174; BP diastolic 72–86
[2025-07-30 04:08] LABS: BASOPHILS ABSOLUTE AUTO 0.04 K/mm3 (0.00-0.23); BASOPHILS PERCENT AUTO 1 % (0-2); EOSINOPHILS ABSOLUTE AUTO 0.08 K/mm3 (0.00-0.68); EOSINOPHILS PERCENT AUTO 1 % (0-6); Hematocrit 34.3 % (33.0-51.0); Hemoglobin 11.9 g/dL (11.5-16.0); IMMATURE GRAN ABSOLUTE AUTO 0.03 K/mm3 (0.00-0.10); IMMATURE GRAN PERCENT AUTO 0 % (0-1); LYMPHOCYTES ABSOLUTE AUTO 1.01 K/mm3 (0.84-5.20); LYMPHOCYTES PERCENT AUTO 11 % (21-46); MONOCYTES ABSOLUTE AUTO 0.74 K/mm3 (0.16-1.47); MONOCYTES PERCENT AUTO 8 % (4-13); Mean Corpuscular HGB Conc 34.7 g/dL (31.5-36.5); Mean Corpuscular Volume 91 fL (80-100); NEUTROPHILS ABSOLUTE AUTO 6.93 K/mm3 (1.96-9.15); NEUTROPHILS PERCENT AUTO 79 % (41-73); NRBC ABSOLUTE 0.00 K/mm3 (0.00-0.02); NRBC Auto 0.0 /100 WBC (0.0-0.2); Platelet Count 509 K/mm3 (150-400); RDW Coefficient Variation 13.2 % (11.7-14.2); RDW Standard Deviation 43.1 fL (35.1-46.3)
[2025-07-30 04:30] LABS: Alanine Aminotransfer (ALT/SGP 53.0 U/L (12-78); Albumin, Blood 2.8 g/dL (3.4-5.0); Albumin/Globulin Ratio 0.7 (0.8-1.8); Anion Gap 10.0 mmol/L (3-11); Aspartate Aminotrans (AST/SGOT 49.0 U/L (12-37); Bilirubin, Total 1.0 mg/dL (0.1-1.0); Blood Urea Nitrogen 12.0 mg/dL (8-24); CO2, Blood 30.0 mmol/L (21-32); Calcium, Blood 8.8 mg/dL (8.5-10.1); Chloride, Blood 92.0 mmol/L (98-108); Creatinine, Blood 0.52 mg/dL (0.40-1.00); Globulin, Blood 3.8 g/dL (2.2-4.0); Glucose, Blood 107.0 mg/dL (70-99); Magnesium, Blood 2.0 mg/dL (1.6-2.4); Potassium, Blood 3.2 mmol/L (3.5-5.5); Sodium, Blood 129.0 mmol/L (136-145); Total Protein, Blood 6.6 g/dL (6.4-8.2)
--- NOTE | 2025-07-30 04:41 | NUR ---
SHIFT SUMMARY PT OSTOMY IS PRODUCING A BIT MORE BROWN SOFT STOOL, PASSING GAS. PT REPORTS THAT SHE IS STILL FEELING BLOATED AND DISTENDED. PAIN MANAGED PER EMAR. NO N/V. PT STARTED ON NORVASAC, AND K-DUR THIS SHIFT PER ORDERS. IVF INFUSING, VITALS ARE STABLE. PLAN OF CARE REMAINS UNCHANGED. BED IN LOWEST POSITION, CALL LIGHT WITHIN REACH.
--- NOTE | 2025-07-30 13:36 | NUR ---
ASSUMPTION OF CARE ASSUMED CARE OF THE PATIENT AT 1300, BEDSIDE REPORT COMPLETED, PT SITTING IN BED, STATES SHE FEELS LESS BLOATED TODAY, INCISION LOOKS C/D, OSTOMY APPLIANCE IN PLACE IWTH STOOL IN THE BAG WITH FLATUS. NO ACUTE NEEDS AT THIS TIME, PT STATES SHE THINKS SHE IS GOING TO GO FOR A WALK, PT IS ALBE TO DO SO INDEPENDENTLY.
--- NOTE | 2025-07-30 18:48 | NUR ---
SHIFT SUMMARY POD7 SIGMOID COLECTOMY, A/X4, VSS, TOLERATING PO, PAIN WELL MANAGED, AMBULATING IN THE HALLS, OSTOMY CHANGED TODAY AFTER NOTING A LEAK. EDUCATION PROVIDED FOR OSTOMY.
--- NOTE | 2025-07-31 05:01 | NUR ---
PT INDEPENDENT TO BATHROOM MULTIPLE TIMES ON THIS SHIFT WITH ONE REQUEST FOR A NEW PULL UP. VITALS STABLE, NO ACUTE EVENTS, NO REPORTS OF PAIN, NO PRN MEDICATIONS USED. BED IN LOW POSITION, CALL CARLISLE AND PERSONAL BELONGINGS WITHIN REACH.
[2025-07-31 06:35] LABS: Alanine Aminotransfer (ALT/SGP 48.0 U/L (12-78); Albumin, Blood 2.8 g/dL (3.4-5.0); Albumin/Globulin Ratio 0.8 (0.8-1.8); Anion Gap 8.0 mmol/L (3-11); Aspartate Aminotrans (AST/SGOT 43.0 U/L (12-37); Bilirubin, Total 1.0 mg/dL (0.1-1.0); Blood Urea Nitrogen 13.0 mg/dL (8-24); CO2, Blood 30.0 mmol/L (21-32); Calcium, Blood 9.1 mg/dL (8.5-10.1); Chloride, Blood 95.0 mmol/L (98-108); Creatinine, Blood 0.56 mg/dL (0.40-1.00); Globulin, Blood 3.5 g/dL (2.2-4.0); Glucose, Blood 100.0 mg/dL (70-99); Potassium, Blood 3.3 mmol/L (3.5-5.5); Sodium, Blood 130.0 mmol/L (136-145); Total Protein, Blood 6.3 g/dL (6.4-8.2)
[2025-07-31 07:34] VITALS: BP 146/78
--- NOTE | 2025-07-31 08:34 | NUR ---
OFFERED TO SET UP CHAIR FOR BREAKFAST.PATIENT DECLINED
--- NOTE | 2025-07-31 13:35 | NUR ---
ROUNDING: IN TO SEE PATIENT AND PLANS TO DC PT HOME TODAY. PT HAS NOT HAD SOLID FOOD. DIET ADVANCED PER DR NOGUEIRA. PT ALSO STATES THAT SHE HAS NOT DONE ANY INDEPENDENT OSTOMY CARE THUS FAR IN HER STAY. PT ALOS HAVING INCREASING PAIN THIS AFTERNOON. EXPRESSED CONCERNS TO DOCTOR WHO REQUESTED OSTOMY TEACHING TO START AND IF SHE TOLERATES DIET SHE MAY STILL DC HOME.
[2025-07-31] MEDS ORDERED: OxyCODONE 5 mg/Acetamin 325 mg TABLET PO PRN (14:05)
--- NOTE | 2025-07-31 15:00 | NUR ---
DISCHARGE: OSTOMY EDUCATION STARTED AND PT TAUGHT BAG EMPTYING. PT UNABLE TO MANAGE APPLIANCE CHANGE. SUGGESTED USING MIRROR TO SEE BETTER. THIS RN SPENT TIME TO SHOW PT HOW TO USE THE QR READER ON HER PHONE TO ACCESS EDUCATION AND VIDEOS. PT INFO SENT TO [facility] TO START PROCESS OF ORDERING HOME SUPPLIES. SPOKE TO PT'S SURGEON WHO WILL SEE HER TOMORROW. DISCHARGE HELD FOR NOW SO PT CAN CONTINUE EDUCATION AND HAVE A CHANCE TO START LOW FIBER DIET.
[2025-07-31 15:13] VITALS: BP 121/74
--- NOTE | 2025-07-31 18:26 | NUR ---
PT HAS BEEN STABLE THIS SHIFT. PT POD #8 COLECTOMY WITH NEW OSTOMY. PT WAS TO [place] HOME TODAY HOWEVER HAS NOT RECEIVED OSTOMY EDUCATION. PT PRACTICED OSTOMY EMPTYING THIS SHIFT. SHE HAS NOT REPLACED AN APPLIANCE BUT WAS INSTRUCTED ON HOW TO CHANGE BY THIS RN. PT ALSO SET UP TO WATCH OSTOMY EDUCATION VISEOS BY THIS RN. DIET ADVANCED TO LOW FIBER THIS EVENING, TOLERATED WELL. PT WITH MODERATE AMT UNFORMED, THICK STOOL FROM OSTOMY. FLATUS PRESENT IN BAG. VOIDING WELL. PT UP INDEP TO AMBULATE AND SIT IN CHAIR. PAIN MANAGED WITH PRN MEDS. SCRIPT TO CHART FOR FILL AT [place]. NEW MEDS FAXED TO PREFERRED PHARMACY. PROBABLE DC HOME TOMORROW.
[2025-07-31 19:36] VITALS: BP 147/86
[2025-07-31 21:20] VITALS: BP 152/82
[2025-08-01 03:48] VITALS: BP 171/92
[2025-08-01 05:50] VITALS: BP 156/88
[2025-08-01 06:57] VITALS: BP 150/94
--- NOTE | 2025-08-01 07:33 | NUR ---
SHIFT SUMMARY NOC. PT POD 9 SIGMOID COLECTOMY. OSTOMY IS MOIST, RED AND PRODUCING OUTPUT, ENCOURAGING INDEPENDENCE AND EDUCATION FOR OSTOMY. PT MEDICATED FOR ABDOMINAL PAIN AND ALSO MEDICATED WITH TUMS. PT VOIDING URINE AND TOLERATING DIET. CALL LIGHT IN REACH, MAKES NEEDS KNOWN.
[2025-08-01 12:01] LABS: BASOPHILS ABSOLUTE AUTO 0.04 K/mm3 (0.00-0.23); BASOPHILS PERCENT AUTO 1 % (0-2); EOSINOPHILS ABSOLUTE AUTO 0.02 K/mm3 (0.00-0.68); EOSINOPHILS PERCENT AUTO 0 % (0-6); Hematocrit 39.6 % (33.0-51.0); Hemoglobin 13.7 g/dL (11.5-16.0); IMMATURE GRAN ABSOLUTE AUTO 0.02 K/mm3 (0.00-0.10); IMMATURE GRAN PERCENT AUTO 0 % (0-1); LYMPHOCYTES ABSOLUTE AUTO 0.77 K/mm3 (0.84-5.20); LYMPHOCYTES PERCENT AUTO 12 % (21-46); MONOCYTES ABSOLUTE AUTO 0.61 K/mm3 (0.16-1.47); MONOCYTES PERCENT AUTO 9 % (4-13); Mean Corpuscular HGB Conc 34.6 g/dL (31.5-36.5); Mean Corpuscular Volume 91 fL (80-100); NEUTROPHILS ABSOLUTE AUTO 5.25 K/mm3 (1.96-9.15); NEUTROPHILS PERCENT AUTO 78 % (41-73); NRBC ABSOLUTE 0.00 K/mm3 (0.00-0.02); NRBC Auto 0.0 /100 WBC (0.0-0.2); Platelet Count 570 K/mm3 (150-400); RDW Coefficient Variation 13.4 % (11.7-14.2); RDW Standard Deviation 43.8 fL (35.1-46.3)
[2025-08-01 12:29] LABS: Alanine Aminotransfer (ALT/SGP 55.0 U/L (12-78); Albumin, Blood 3.3 g/dL (3.4-5.0); Albumin/Globulin Ratio 0.8 (0.8-1.8); Anion Gap 11.0 mmol/L (3-11); Aspartate Aminotrans (AST/SGOT 43.0 U/L (12-37); Bilirubin, Total 0.8 mg/dL (0.1-1.0); Blood Urea Nitrogen 16.0 mg/dL (8-24); CO2, Blood 26.0 mmol/L (21-32); Calcium, Blood 9.5 mg/dL (8.5-10.1); Chloride, Blood 95.0 mmol/L (98-108); Creatinine, Blood 0.49 mg/dL (0.40-1.00); Globulin, Blood 4.4 g/dL (2.2-4.0); Glucose, Blood 124.0 mg/dL (70-99); Potassium, Blood 3.5 mmol/L (3.5-5.5); Sodium, Blood 128.0 mmol/L (136-145); Total Protein, Blood 7.7 g/dL (6.4-8.2)
[2025-08-01] MEDS ORDERED: AMLO10 PO (13:58)
[2025-08-01] MEDS ORDERED: LOSA50 PO (13:59)
[2025-08-01] MEDS ORDERED: DULCOLAX400 MG/5 M PO (14:00)
[2025-08-01] MEDS ORDERED: OMEP20ER PO (14:00)
[2025-08-01] MEDS ORDERED: MIRALAX17 GM PO (14:00)
[2025-08-01] MEDS ORDERED: Percocet 5-3251 EACH PO (14:00)
[2025-08-01] MEDS ORDERED: K-Dur20 MEQ PO (14:02)
[2025-08-01] MEDS ORDERED: SENN187 PO (14:03)
--- NOTE | 2025-08-01 14:24 | NUR ---
DISCHARGE PATIENT ENDORSES SHE UNDERSTANDS OSTOMY CHANGING, BURPING, AND EMPTYING. EDUCATION AND SUPPLIES ARE ALL PACKED IN BELONGINGS BAGS. STOMA IS PUTTING OUT BROWN STOOL, UNFORMED. BAG IS FILLING WITH GAS. PATIENT STATES SHE KNOWS WHEN TO EMPTY AND BURP BAG.VSS, LAP SITES ARE C/D/I. PATIENT SIGNS DISCHARGE INSTRUCTIONS AND FOLLOW UPS ARE MADE WITH PCP. PRESCRIPTION FOR PERCOCET WITH PATIENT DC PACKET. IV IS TAKEN OUT INTACT. PATIENT AWAITING RIDE HOME WILL CALL WHEN THEY ARRIVE FOR WHEEL CHAIR OUT.
[2025-08-01 15:06] VITALS: BP 150/90
== END 2025-08-01 15:25 | disposition home or self-care (01) | DRG 330 ==
LOC: ER 17:55 → SURS 22:26
PROVIDERS: Family Medicine; Internal Medicine; Student in an Organized Health Care Education/Training Program; Surgery; ADMIT Student in an Organized Health Care Education/Training Program
PROC: 0DJD8ZZ Inspection of Lower Intestinal Tract, Via Natural or Artificial Opening Endoscopic (ICD-10-PCS; 2025-07-22)
PROC: 0DBM0ZZ Excision of Descending Colon, Open Approach (ICD-10-PCS; 2025-07-23)
PROC: 0DTN0ZZ Resection of Sigmoid Colon, Open Approach (ICD-10-PCS; 2025-07-23)
PROC: 0D9670Z Drainage of Stomach with Drainage Device, Via Natural or Artificial Opening (ICD-10-PCS; 2025-07-23)
PROC: 3E03329 Introduction of Other Anti-infective into Peripheral Vein, Percutaneous Approach (ICD-10-PCS; 2025-07-23)
PROC: 3E02340 Introduction of Influenza Vaccine into Muscle, Percutaneous Approach (ICD-10-PCS; 2025-07-23)
PROC: 0D1M0Z4 Bypass Descending Colon to Cutaneous, Open Approach (ICD-10-PCS; principal; 2025-07-23 12:00)
DX: C18.9 Malignant neoplasm of colon, unspecified (principal); E87.1 Hypo-osmolality and hyponatremia; K56.609 Unspecified intestinal obstruction, unspecified as to partial versus complete obstruction; E78.5 Hyperlipidemia, unspecified; E87.6 Hypokalemia; K59.00 Constipation, unspecified; I10 Essential (primary) hypertension; E66.9 Obesity, unspecified; R91.1 Solitary pulmonary nodule; D72.829 Elevated white blood cell count, unspecified; D75.839 Thrombocytosis, unspecified; D64.9 Anemia, unspecified; G47.30 Sleep apnea, unspecified; Z79.899 Other long term (current) drug therapy; Z88.8 Allergy status to other drugs, medicaments and biological substances; Z87.19 Personal history of other diseases of the digestive system; Z98.51 Tubal ligation status; Z90.710 Acquired absence of both cervix and uterus; Z90.721 Acquired absence of ovaries, unilateral; Z85.42 Personal history of malignant neoplasm of other parts of uterus; Z23 Encounter for immunization; Z68.39 Body mass index [BMI] 39.0-39.9, adult
CPT/HCPCS: 36415; 71045; 74177; 80048; 80053; 82947; 83605; 83690; 83735; 85025; 85610; 88309; 94762; 96374-59; 99285-25; A9270; J0295; J0360; J0780; J1100; J1171; J1650; J2270; J2405; J2470; J2704; J3010; J3480; J7030; J7120; Q9967

== ENCOUNTER 2025-09-15 06:27 | Day surgery (SDC) | payer OTHER ==
[2025-09-15] VITALS (8 sets, daily range): BP systolic 132–145; BP diastolic 77–90
[~2025-09-15] VITALS: Ht 157.5 cm; Wt 96.0 kg
[~2025-09-15 06:27] MED LIST changes: +AMLO10 PO; +Amitriptyline H10 MG PO; +Aspir 8181 MG PO; +CINNAMON EXTRA500 MG PO; +CeFAZolin Sodium 2,000 MG in NS 100 ML IV SCH; +DULCOLAX400 MG/5 M PO; +K-Dur20 MEQ PO; +KETO60I IM; +LOSA25 PO; +LOSA50 PO; +MAG GLYCINATE100 MG PO; +MELATONIN TR10 MG PO; +MIRALAX17 GM PO; +OMEP20ER PO; +Percocet 5-3251 EACH PO; +SENN187 PO; +[UNRECOGNIZED DRUG - OTHER] IM
--- NOTE | 2025-09-15 07:07 | NUR ---
Ambulatory in Day Surgery History, Chart, Medications and Allergies reviewed before start of procedure. Pre-Op teaching done. Pt verbalizes understanding. Patient States Post-Procedure ride home has been arranged.
[2025-09-15] MEDS ORDERED: Ondansetron HCl 2 MG / ML 2ML Vial ONE (07:32)
[2025-09-15] MEDS ORDERED: FentaNYL Citrate 50 MCG/ML 2 ML Injection ONE (07:32)
[2025-09-15] MEDS ORDERED: Dexamethasone Sod Phos 10 MG/ML 1ML VIAL ONE (07:32)
[2025-09-15] MEDS ORDERED: Metoclopramide HCl 5MG / ML 2ML Vial IV PRN (07:35)
[2025-09-15] MEDS ORDERED: FentaNYL Citrate 50 MCG/ML 2 ML Injection IV PRN ×3 (07:35)
[2025-09-15] MEDS ORDERED: HYDROmorphone HCl/Pf 1MG SYR IV PRN (07:35)
[2025-09-15] MEDS ORDERED: Ondansetron HCl 2 MG / ML 2ML Vial IV PRN (07:35)
[2025-09-15] MEDS ORDERED: ePHEDrine Sulfate 50 MG/ML 1ML Injection ONE (08:06)
[2025-09-15] MEDS ORDERED: Phenylephrine HCl 100 MCG/ML-NS 10MLSYR (1MG/10ML) ONE (08:09)
[2025-09-15] MEDS ORDERED: OxyCODONE 5 mg/Acetamin 325 mg TABLET PO PRN (08:35)
--- NOTE | 2025-09-15 09:26 | NUR ---
PT DOING WELL NO PAIN NO NAUSEA Patient States Post-Procedure ride home has been arranged. Discharged via wheelchair to private car for ride home. Discharge instructions reviewed with patient. Patient verbalizes understanding. Copy given to patient to take home.
== END 2025-09-15 23:00 | disposition home or self-care (01) ==
LOC: ORSCMMR 06:27 → ORD 08:00 → ORSCMMR 23:00
PROVIDERS: Surgery
PROC: 0JH60WZ Insertion of Totally Implantable Vascular Access Device into Chest Subcutaneous Tissue and Fascia, Open Approach (ICD-10-PCS; principal; 2025-09-15 08:00)
DX: C18.7 Malignant neoplasm of sigmoid colon (principal); I10 Essential (primary) hypertension; Z85.42 Personal history of malignant neoplasm of other parts of uterus; E66.9 Obesity, unspecified; Z68.42 Body mass index [BMI] 45.0-49.9, adult; Z79.899 Other long term (current) drug therapy; Z79.82 Long term (current) use of aspirin
CPT/HCPCS: 77001; C1788; J0690; J1100; J1642; J2371; J2405; J2704; J3010; J7120